=== PATIENT | female | born 2000 | race Caucasian/White ===

== ENCOUNTER 2022-06-13 17:48 | Emergency (ER) | payer BC, SELFPAY ==
[2022-06-13 17:49] VITALS: BP 136/86; PULSE 128; RESP 15; TEMP 36.4; O2SAT 99; BMI 56.6
[2022-06-13 18:20] LABS: Mucous, Urine 0 SEEN /hpf (<or=2+)
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
[2022-06-13] MEDS: 0.9% Normal Saline 1,000 ML 1000 ML IV (18:23)
[2022-06-13 18:24] LABS: Color, Urine Straw (Yellow); Glucose, Dipstick Normal (Normal); Ketone-Dipstick Negative (Negative); Leukocyte Esterase-Dipstick 25 /ul (Negative); Nitrite-Dipstick Negative (Negative); Occult Blood-Urine 250 /ul (Negative); Protein-Dipstick Negative (Negative); Urine Bilirubin Dipstick Negative (Negative); Urine Clarity Sl. Cloudy (Clear); Urine Urobilinogen Normal (Normal); Urine pH 6.5 (5.0 - 8.0)
[2022-06-13 18:31] LABS: Absolute Lymphocyte Count 1.17 X10^3/uL (0.83-4.51); Absolute Neutrophil Count 4.2 X10^3/uL (2.0-7.7); Basophil# 0.01 X10^3/uL; Basophil% 0.2 % (0-1); Eosinophil# 0.01 X10^3/uL; Eosinophils% 0.2 % (0-5); Hematocrit 44.3 % (37-47); Hemoglobin 14.4 g/dL (12.0-15.0); Lymphocyte # 1.17 X10^3/ul (0.83-4.51); Lymphocyte % 20.2 % (19-41); Mean Corp Hgb Conc 32.5 g/dL (32-36); Mean Corpuscular Hgb 26.4 pg (27.0-32.0); Mean Corpuscular Volume 81.1 fL (81-99); Mean Platelet Vol. 8.8 fl (6.2-12.0); Monocyte# 0.33 X10^3/uL; Monocyte% 5.7 % (0-10); NRBC Flagged by Analyzer 0 % (0-5); Neutrophil # 4.24 X10^3/uL (2.7-7.7); Neutrophil % 73.4 % (47-70); Platelet Count 269 K/mm3 (150-450); RBC Distribution Width CV 13.3 % (11.6-14.6); RBC Distribution Width SD 39.2 fl (35.1-43.9); Red Blood Count 5.46 M/mm3 (4.2-5.4); White Blood Count 5.8 K/mm3 (4.4-11.0)
[2022-06-13 18:38] LABS: Bacteria 1+ /hpf (None Seen); Red Blood Cells-Urine 0-5 SEEN /hpf (0-5); Squamous Epithelial Cells - UA 5-10 SEEN /hpf (5-10); White Blood Cells 0-5 SEEN /hpf (0-5)
[2022-06-13 18:40] LABS: Coarse Granular Cast 10-25 SEEN /lpf (0-5 /lpf)
[2022-06-13 18:55] LABS: ALB/GLOB Ratio 0.8 RATIO (0.9-2.4); AST(SGOT) 27 U/L (15-37); Alanine Aminotransfer ALT/SGPT 35 U/L (13-56); Albumin, Serum 3.9 g/dL (3.2-5.0); Alkaline Phosphatase 63 U/L (45-117); Anion Gap 9 (5-15); BUN 13 mg/dL (7-18); BUN/Creat Ratio 15.6 RATIO (10-20); Calcium,Total 9.5 mg/dL (8.5-10.1); Chloride 103 mmol/L (98-107); Creatinine, Serum 0.83 mg/dL (0.55-1.02); EST Glomerular Filtration Rate 92 mL/min (>60); Est Glom Filt Rate - Afr Amer 112 mL/min (>60); Estimated Creatinine Clearance 93.36 ml/min; Globulin 4.8 g/dL (2.2-4.2); Glucose 110 mg/dL (74-106); Lipase 105 U/L (73-393); Potassium 2.9 mmol/L (3.5-5.1); Protein, Total 8.7 g/dL (6.4-8.2); Sodium Level 136 mmol/L (136-145)
[2022-06-13 19:07] LABS: Magnesium 2.1 mg/dL (1.6-2.6)
[2022-06-13] MEDS: Potassium Chloride Oral Tablet 20 MEQ 40 MEQ PO (19:12)
[2022-06-13] MEDS: Potassium Chloride 10mEq/100mL 10 MEQ/100 ML IV.SOLN. 100 MEQ IV BOLUS (19:32)
[2022-06-13 19:49] VITALS: RESP 16
[2022-06-13 21:00] VITALS: BP 136/92; PULSE 84; RESP 16; O2SAT 97
[2022-06-13 21:06] LABS: Internal QC Validated? YES +Cl - CLEAR BKGD; Pregnancy, Urine Negative Negative
[2022-06-13 22:03] VITALS: BP 152/89; PULSE 82; RESP 18
== END 2022-06-13 22:08 | disposition home or self-care (01) ==
PROVIDERS: Emergency Provider Emergency Medicine; Visit Provider Emergency Medicine
DX: R19.7 Diarrhea, unspecified (principal); E87.6 Hypokalemia; R00.0 Tachycardia, unspecified
CPT/HCPCS: 80053; 81001; 81025; 83690; 83735; 85025; 96361; 96365; 99283; J7030; J7050; A4216